=== PATIENT | male | born 1945 | race Hispanic/Latino ===

== ENCOUNTER 2018-10-25 06:28 | Emergency (ER) | payer BC, MEDICARE ==
[2018-10-25 06:29] VITALS: BMI 29.0
[2018-10-25 06:47] VITALS: RESP 18; O2SAT 98
[2018-10-25] MEDS ORDERED: Lidocaine 5% Patch TD STA (07:40)
--- NOTE | 2018-10-25 08:04 | ED PDOC ---
Arrival/HPI - General Chief Complaint: Upper Extremity Problem/Injury Historian: Patient - History of Present Illness Narrative History of Present Illness (Text): 10/25/18 08:05 73 year old male, with past medical history of rheumatoid arthritis, presents to emergency department complaining of left "shooting" shoulder pain radiating down the arm. Patient reports stiffness in the neck and stated that the pain spread to the right and base of spine earlier for a while before completely localizing to the left shoulder and arm. Patient reports not taking methotrexate for the past 2-3 months as instructed by doctor. Patient also reports taking steroids for the pain and medication last night and earlier today with no significant improvement. Patient describes "hot" sensation in extremities. Patient denies any urinary symptoms, fevers, chills, headache, dizziness, chest pain, shortness of breath, cough, abdominal pain, nausea, vomiting, diarrhea, back pain, or any other complaints. Patient denies any recent fall or trauma, recent strenuous activity, or numbness and tingling in extremities. Time/Duration: Other (10 hours) Symptom Onset: Sudden Symptom Course: Unchanged Activities at Onset: Light Context: Home Past Medical History - Provider Review Nursing Documentation Reviewed: Yes - Infectious Disease Hx of Infectious Diseases: None - Tetanus Immunization Tetanus Immunization: Unknown - Cardiac Hx Cardiac Disorders: No Hx Pacemaker: No - Pulmonary Hx Respiratory Disorders: No - Neurological Hx Neurological Disorder: No - HEENT Hx HEENT Disorder: Yes (eyeglasses) - Renal Hx Renal Disorder: No - Endocrine/Metabolic Hx Endocrine Disorders: No - Hematological/Oncological Hx Blood Disorders: No - Integumentary Hx Dermatological Disorder: No - Musculoskeletal/Rheumatological Hx Falls: No Hx Rheumatoid Arthritis: Yes - Gastrointestinal Hx Gastrointestinal Disorders: No Hx Pancreatitis: Yes - Genitourinary/Gynecological Hx Genitourinary Disorders: No - Psychiatric Hx Emotional Abuse: No Hx Physical Abuse: No Hx Substance Use: No - Past Surgical History Past Surgical History: No Previous - Surgical History Hx Cholecystectomy: Yes (2014) Other/Comment: r abd ventral hernia repair today 02/07/2016, tonsils 6 yrs old - Anesthesia Hx Anesthesia Reactions: No Hx Malignant Hyperthermia: No - Suicidal Assessment Feels Threatened In Home Enviroment: No Family/Social History - Physician Review Nursing Documentation Reviewed: Yes Family/Social History: Unknown Family HX Smoking Status: Never Smoked Hx Alcohol Use: No Hx Substance Use: No Hx Substance Use Treatment: No Allergies/Home Meds Allergies/Adverse Reactions: Allergies No Known Allergies Allergy (Verified 10/25/18 06:46) Home Medications: Home Meds Medication Instructions Recorded Confirmed Hydroxychloroquine Sulfate 200 mg PO BID 03/15/14 10/25/18 [Plaquenil] Review of Systems - Physician Review All systems were reviewed & negative as marked: Yes - Review of Systems Constitutional: absent: Fevers Respiratory: absent: SOB, Cough, Wheezing Gastrointestinal: absent: Abdominal Pain, Diarrhea, Nausea, Vomiting Genitourinary Male: absent: Frequency, Hematuria, Urinary Output Changes Musculoskeletal: Arthralgias (left shoulder radiating down arm; spread to right briefly ), Back Pain (lower spine ), Other (neck stiffness) Skin: absent: Rash Neurological: absent: Headache, Dizziness Physical Exam Vital Signs Reviewed: Yes Vital Signs Temp Pulse Resp BP Pulse Ox 10/25/18 06:46 97.8 F 103 H 18 129/81 98 Temperature: Afebrile Blood Pressure: Normal Pulse: Regular Respiratory Rate: Normal Appearance: Positive for: Well-Appearing, Non-Toxic, Comfortable Pain Distress: None Mental Status: Positive for: Alert and Oriented X 3 - Systems Exam Head: Present: Atraumatic, Normocephalic Pupils: Present: PERRL Extroacular Muscles: Present: EOMI Conjunctiva: Present: Normal Mouth: Present: Moist Mucous Membranes Neck: Present: Normal Range of Motion Respiratory/Chest: Present: Clear to Auscultation, Good Air Exchange. No: Respiratory Distress, Accessory Muscle Use Cardiovascular: Present: Regular Rate and Rhythm, Normal S1, S2. No: Murmurs Abdomen: No: Tenderness, Distention, Peritoneal Signs Back: Present: Normal Inspection. No: Midline Tenderness Upper Extremity: Present: NORMAL PULSES, Other (tenderness and palpation left shoulder; sensation preserved; abduct arm beyond 90 degrees; able to flex and extend at left elbow; motor strength 5/5 in both arms). No: Cyanosis, Edema Lower Extremity: Present: Normal Inspection. No: Edema Neurological: Present: GCS=15, CN II-XII Intact, Speech Normal Skin: Present: Warm, Dry, Normal Color. No: Rashes Psychiatric: Present: Alert, Oriented x 3, Normal Insight, Normal Concentration Medical Decision Making ED Course and Treatment: 10/25/18 08:20 Impression: 73 year old male presents to emergency department complaining of left shoulder pain radiating down arm since the past 10 hours. Differential Diagnosis included but are not limited to: Impinched nerve Rotator cuff tear Tendonitis Bursitis Plan: -- EKG -- Labs -- Reassess and disposition Prior Visits: Notes and results from previous visits were reviewed. Progress Notes: 10/25/18 09:00 - Medication Orders Current Medication Orders: Discontinued Medications Dexamethasone (Decadron Inj) 10 mg IVP STAT STA Stop: 10/25/18 07:41 Diazepam (Valium) 5 mg PO ONCE ONE; Protocol Stop: 10/25/18 07:41 Ketorolac Tromethamine (Toradol) 30 mg IVP STAT STA Stop: 10/25/18 07:41 Lidocaine (Lidoderm) 1 ea TD STAT STA Stop: 10/25/18 07:41 - Scribe Statement The provider has reviewed the documentation as recorded by the Scribe Alma Delia Varghese All medical record entries made by the Scribe were at my direction and personally dictated by me. I have reviewed the chart and agree that the record accurately reflects my personal performance of the history, physical exam, medical decision making, and the department course for this patient. I have also personally directed, reviewed, and agree with the discharge instructions and disposition. Disposition/Present on Arrival - Present on Arrival Any Indicators Present on Arrival: No History of DVT/PE: No History of Uncontrolled Diabetes: No Urinary Catheter: No History of Decub. Ulcer: No History Surgical Site Infection Following: None - Disposition Have Diagnosis and Disposition been Completed?: Yes Diagnosis: Shoulder pain, left, Neck pain Disposition: HOME/ ROUTINE Disposition Time: 08:52 Patient Plan: Discharge Patient Problems: Current Active Problems Problem Status Onset Shoulder pain, left Acute Neck pain Acute Condition: IMPROVED Discharge Instructions (ExitCare): Generalized Neck Pain (DC), Shoulder Pain (DC) Print Language: MAORI Additional Instructions: All medical record entries made by the Scribe were at my direction and personally dictated by me. I have reviewed the chart and agree that the record accurately reflects my personal performance of the history, physical exam, medical decision making, and the department course for this patient. I have also personally directed, reviewed, and agree with the discharge instructions and disposition. 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 Prescriptions: Diazepam [Valium] 2 mg PO Q8H #6 tablet Ibuprofen [Motrin] 600 mg PO Q6H #12 tab Lidocaine 5% [Lidoderm] 1 ea TD Q12H #6 patch Methylprednisolone [Medrol Dose Pack (21 tabs)] 4 mg PO DAILY #21 mg Referrals: Thomas Aguilar MD [Medical Doctor] - Follow up with primary Paolo Kasper MD [Family Provider] - Follow up with primary Forms: [employer] (Slovenian)
[2018-10-25 09:06] VITALS: BP 108/77; PULSE 92; TEMP 97.3
--- NOTE | 2018-10-25 20:09 | CARD ---
APPROVED REPORT Date of service: 10/25/2018 EKG Measurement Heart [id number] <Conclusion> Normal sinus rhythm Nonspecific ST abnormality Prolonged QT Abnormal ECG
== END 2018-10-25 09:08 | disposition home or self-care (01) ==
LOC: ED 06:28
DX: M25.512 Pain in left shoulder (principal); M54.2 Cervicalgia; M06.9 Rheumatoid arthritis, unspecified
CPT/HCPCS: 93005; 96374; 96375; 99284; J1100; J1885

== ENCOUNTER 2018-10-28 11:12 | Outpatient (CLI) | payer MEDICARE | END 2018-10-28 11:13 | disposition home or self-care (01) | LOC: RAD 11:12 ==

== ENCOUNTER 2019-01-08 13:35 | Outpatient (CLI) | payer MEDICARE, BC | END 2019-01-08 13:36 | disposition home or self-care (01) | LOC: RAD 13:35 ==